=== PATIENT | female | born 1950 | race Two or more races ===

== ENCOUNTER 2017-02-12 07:19 | Emergency (ER) | payer MEDICARE, OTHER ==
[~2017-02-12] VITALS: Ht 162.6 cm; Wt 63.5 kg
[2017-02-12 07:22] VITALS: BP 111/65
[2017-02-12] MEDS ORDERED: SEROQUEL300 MG ORAL (07:33)
--- NOTE | 2017-02-12 07:48 | Emergency Room Report ---
History of Present Illness General Chief Complaint: Dyspnea/Respdistress Source: EMS Present Illness HPI 66-year-old female, history of psychiatric problems on Seroquel, presenting with shortness of breath for 3-4 days. Patient states that she is short of breath mostly at nighttime. Sleeps with one pillow. More short of breath on exertion. States she was shopping earlier at [employer] and became more short of breath. Denies any chest pain nausea vomiting diaphoresis palpitations. Patient states that she has had lower extremity swelling for "quite some time "but has worsened. Patient states that she does not have a medical doctor only a psychiatrist. Patient states that she was last hospitalized last week for left foot pain, was discharged from the hospital. Denies any history of DVT or PE, no recent surgeries, immobilization, or malignancy Patient states her shortness of breath has slowly resolved upon coming to the emergency room, she is not in acute distress speaking in complete sentences Allergies: Coded Allergies: PENICILLINS (Verified Allergy, Unknown, 02/12/17) Patient History Past Medical History: see triage record Past Surgical History: none Pertinent Family History: none Reviewed Nursing Documentation: PMH: Agreed, PSxH: Agreed Nursing Documentation-PMH Hx COPD: Yes History Of Psychiatric Problem: Yes - Schizophrenia Review of Systems All Other Systems: negative except mentioned in HPI Physical Exam Vital Signs Date Time Temp Pulse Resp B/P (MAP) Pulse Ox O2 Delivery O2 Flow Rate FiO2 02/12/17 07:15 97.0 18 18 112/67 100 Room Air Sp02 EP Interpretation: reviewed, normal General Appearance: normal inspection, well appearing, no apparent distress, alert, GCS 15, non-toxic Head: normocephalic, atraumatic Eyes: bilateral eye normal inspection, bilateral eye PERRL, bilateral eye EOMI ENT: normal ENT inspection, normal pharynx, normal voice, moist mucus membranes Neck: normal inspection, full range of motion, supple Respiratory: normal inspection, lungs clear, normal breath sounds, no respiratory distress, no retraction, no wheezing, speaking full sentences, chest symmetrical Cardiovascular #1: normal inspection, regular rate, rhythm, normal capillary refill, edema Cardiovascular #2: 2+ radial (R), 2+ radial (L) Gastrointestinal: normal inspection, non tender, soft, non-distended, no guarding Musculoskeletal: back normal, normal range of motion, non-tender, other - 2+ pitting edema b/l lower ext, slightly worse on L Neurologic: normal inspection, alert, oriented x3, responsive, motor strength/ tone normal, sensory intact, normal gait, speech normal Psychiatric: normal inspection, judgement/insight normal, memory normal Skin: normal inspection, normal color, no rash, warm/dry, well hydrated, normal turgor Medical Decision Making Diagnostic Impression: Primary Impression: Dyspnea Additional Impression: Edema ER Course 66-year-old female presenting with shortness of breath for 3-4 days DDX: CHF, ACS, pneumonia, viral uri PE also in differential, however there are no risk factors for this patient, and patient is currently asymptomatic, no tachycardia no hypoxia Plan: IV access, cardiac monitor technician obtain basic labs, troponin, BNP Consider Lasix ER course: Lasix was given. Patient has remained on the monitor. Has been stable, speaking complete sentences, not tachypnea, not hypoxic, not tachycardic LE duplex study attempted to be obtained however patient refusing. I informed patient need to do study to r/o DVT, which can be lifethreatening cause of LE edema, however patient refusing. states she feels fine and she does not want it. she aox4 and understands risks. At this point I am not overly concerned with acute DVT as edema is bilateral. She has been satting 100% RA, speaking in complete sentences, not in resp distress. with no symptoms labs unremarkable will DC home Disposition: Patient will be discharged to home with strict primary care doctor followup in 3 days. Patient was told to come back to the emergency room immediately if she has worsening swelling or pain, shortness of breath, chest pain, syncopal episodes Please note that this Emergency Department Report was dictated using [email or web address] installation engineer technology software, occasionally this can lead to erroneous entry secondary to interpretation by the dictation equipment. EKG Diagnostic Results EP Interpretation: Yes Rate: normal Rhythm: NSR ST Segments: T-wave inversion V2 ASA given to patient: No Rhythm Strip EP Interpretation: Yes Rate: 70 Rhythm: NSR, no PVCs, no ectopy Chest X-ray CXR: Ordered: Yes 1 view Indication: Chest pain EP interpretation: Yes Interpretation: No consolidation, no effusion, no PTX, no acute cardiopulmonary disease Impression: No acute disease Electronically signed by Bridget Doherty MD Laboratory Tests Test 02/12/17 07:39 White Blood Count 10.8 K/UL (4.8-10.8) Red Blood Count 3.80 M/UL (4.20-5.40) L Hemoglobin 11.7 G/DL (12.0-16.0) L Hematocrit 34.1 % (37.0-47.0) L Mean Corpuscular Volume 90 FL (80-99) Mean Corpuscular Hemoglobin 30.9 PG (27.0-31.0) Mean Corpuscular Hemoglobin Concent 34.4 G/DL (32.0-36.0) Red Cell Distribution Width 11.5 % (11.6-14.8) L Platelet Count 38 K/UL (150-450) L Mean Platelet Volume 13.2 FL (6.5-10.1) H Neutrophils (%) (Auto) % (45.0-75.0) Lymphocytes (%) (Auto) % (20.0-45.0) Monocytes (%) (Auto) % (1.0-10.0) Eosinophils (%) (Auto) % (0.0-3.0) Basophils (%) (Auto) % (0.0-2.0) Differential Total Cells Counted 100 Neutrophils % (Manual) 78 % (45-75) H Lymphocytes % (Manual) 18 % (20-45) L Monocytes % (Manual) 4 % (1-10) Eosinophils % (Manual) 0 % (0-3) Basophils % (Manual) 0 % (0-2) Band Neutrophils 0 % (0-8) Platelet Estimate Adequate Platelet Morphology Normal Clumped Platelets 4+ Sodium Level 136 MMOL/L (136-145) Potassium Level 3.6 MMOL/L (3.5-5.1) Chloride Level 101 MMOL/L (98-107) Carbon Dioxide Level 28 MMOL/L (21-32) Anion Gap 7 mmol/L (5-15) Blood Urea Nitrogen 12 mg/dL (7-18) Creatinine 0.8 MG/DL (0.55-1.30) Estimate Glomerular Filtration Rate > 60 mL/min (>60) Glucose Level 101 MG/DL (74-106) Calcium Level 9.3 MG/DL (8.5-10.1) Total Bilirubin 0.3 MG/DL (0.2-1.0) Aspartate Amino Transferase (AST) 24 U/L (15-37) Alanine Aminotransferase (ALT) 20 U/L (12-78) Alkaline Phosphatase 57 U/L (46-116) Total Creatine Kinase 311 U/L (26-308) H Creatine Kinase MB 5.9 NG/ML (0.0-3.6) H Creatine Kinase MB Relative Index 1.8 Troponin I 0.043 ng/mL (0.000-0.056) Pro-B-Type Natriuretic Peptide 240 pg/mL (0-125) H Total Protein 7.3 G/DL (6.4-8.2) Albumin 3.0 G/DL (3.4-5.0) L Globulin 4.3 g/dL Albumin/Globulin Ratio 0.7 (1.0-2.7) L Last Vital Signs Date Time Temp Pulse Resp B/P (MAP) Pulse Ox O2 Delivery O2 Flow Rate FiO2 02/12/17 07:22 75 22 Room Air 02/12/17 07:22 97.0 111/65 98 Disposition: HOME, SELF-CARE Condition: Improved Bridget Doherty M.D. Feb 12, 2017 07:48
[2017-02-12 08:52] LABS: MEAN CORPUSCULAR HEMOGLOBIN 30.9 PG (27.0-31.0); MEAN CORPUSCULAR HGB CONC 34.4 G/DL (32.0-36.0); MEAN CORPUSCULAR VOLUME 90 FL (80-99); MEAN PLATELET VOLUME 13.2 FL (6.5-10.1); PLATELET COUNT 38 K/UL (150-450); RED CELL DISTRIBUTION WIDTH 11.5 % (11.6-14.8); WHITE BLOOD COUNT 10.8 K/UL (4.8-10.8)
[2017-02-12 09:30] VITALS: BP 110/65
[2017-02-12 09:33] LABS: LYMPHOCYTES % (MANUAL) 18 % (20-45); NEUTROPHILS % (MANUAL) 78 % (45-75); TOTAL CELLS COUNTED 100
[2017-02-12 09:34] LABS: BAND NEUTROPHILS % (MANUAL) 0 % (0-8); BASOPHILS % (MANUAL) 0 % (0-2); EOSINOPHILS % (MANUAL) 0 % (0-3); PLATELET CLUMPS 4+; PLATELET ESTIMATE ADEQUATE; PLATELET MORPHOLOGY NORMAL
[2017-02-12 09:42] LABS: ALANINE AMINOTRANSFERASE 20 U/L (12-78); ALBUMIN/GLOBULIN RATIO 0.7 (1.0-2.7); ANION GAP 7 mmol/L (5-15); ASPARTATE AMINO TRANSFERASE 24 U/L (15-37); CALCIUM 9.3 MG/DL (8.5-10.1); CARBON DIOXIDE 28 MMOL/L (21-32); CHLORIDE 101 MMOL/L (98-107); CKMB 5.9 NG/ML (0.0-3.6); CREATININE 0.8 MG/DL (0.55-1.30); GLOMERULAR FILTRATION RATE > 60 mL/min (>60); POTASSIUM 3.6 MMOL/L (3.5-5.1); SODIUM 136 MMOL/L (136-145); TOTAL PROTEIN 7.3 G/DL (6.4-8.2)
[2017-02-12 09:56] VITALS: BP 110/65
--- NOTE | 2017-02-12 10:32 | Diagnostic Imaging Report ---
Clinical history: Chest pain. Technique: Portable AP chest radiograph was obtained. Comparison: None Findings: Lung volumes are low. No focal consolidation is seen. There is mild basilar atelectasis. Mild perihilar densities suggest mild interstitial edema or vascular crowding. The heart appears borderline enlarged. There is no pleural effusion or pneumothorax. The cardiac and mediastinal silhouettes are normal in appearance. The bony thorax is unremarkable. Impression: Low lung volumes. Borderline cardiomegaly with mild interstitial edema or vascular crowding.
--- NOTE | 2017-02-12 18:30 | Cardiology Report ---
APPROVED REPORT EKG Measurement Heart [id number] Sinus rhythm with short RI Septal infarct, age undetermined Abnormal ECG
== END 2017-02-12 09:56 | disposition home or self-care (01) ==
LOC: EDBD 07:19 → EMR 07:25
DX: R06.00 Dyspnea, unspecified (principal); R60.0 Localized edema; J44.9 Chronic obstructive pulmonary disease, unspecified; F20.9 Schizophrenia, unspecified
CPT/HCPCS: 36415; 71010; 80053; 82550; 82553; 83880; 84484; 85007; 85025; 93005; 99284